=== PATIENT | female | born 1980 | race African-American/Black ===

== ENCOUNTER 2016-06-06 12:44 | Emergency (ER) | payer MEDICAID ==
--- NOTE | 2016-06-06 12:58 | ER Document Report ---
ED Medical Screen (RME) - General Stated Complaint: LEG PAIN Mode of Arrival: Wheelchair Information source: Patient Notes: pt c/o left hip for 5 days, started with her menses. No trauma, denies f/v/d. Reports hip pain radiates down her leg. Denies pmh. took otc med without relief of pain. declines motrin here. I have greeted and performed a rapid initial assessment of this patient. A comprehensive ED assessment and evaluation of the patient, analysis of test results and completion of the medical decision making process will be conducted by additional ED providers. TRAVEL OUTSIDE OF THE [place] IN LAST 30 DAYS: No - Related Data Allergies/Adverse Reactions: No Known Allergies Allergy (Verified 06/06/16 12:57) Past Medical History - Past Medical History Cardiac Medical History: Reports: Hx Hypertension Past Surgical History: Reports: Hx Tubal Ligation - Immunizations Hx Diphtheria, Pertussis, Tetanus Vaccination: Yes
[2016-06-06] MEDS ORDERED: DEXAMETHASONE SOD PHOS INJ 10 MG/1 ML VIAL IV ONE (15:15)
[2016-06-06] MEDS ORDERED: HYDROMORPHONE HCL INJ/PF 2 MG/ML AMPULE IV ONE ×2 (15:15→18:18)
--- NOTE | 2016-06-06 15:22 | ER Document Report ---
ED General - General Chief Complaint: Hip Pain Stated Complaint: LEG PAIN Time seen by provider: 15:17 Mode of Arrival: Wheelchair Information source: Patient Notes: This is a pleasant 35-year-old female with a history of high blood pressure morbid obesity who presents to the emergency room with left posterior pelvis pain for the past one day. Patient denies any fever, chills, nausea vomiting. Patient denies any abdominal pain. Patient has pain with range of motion TRAVEL OUTSIDE OF THE [place] IN LAST 30 DAYS: No - HPI Onset: Yesterday Onset/Duration: Gradual Quality of pain: Dull Severity: Moderate Pain Level: 4 Associated symptoms: denies: Chest pain, Shortness of breath Exacerbated by: Movement Relieved by: Remaining still Similar symptoms previously: No Recently seen / treated by doctor: No - Related Data Allergies/Adverse Reactions: No Known Allergies Allergy (Verified 06/06/16 12:57) Past Medical History - General Information source: Patient - Social History Smoking Status: Never Smoker Cigarette use (# per day): No Chew tobacco use (# tins/day): No Frequency of alcohol use: None Drug Abuse: None Lives with: Family Family History: Reviewed & Not Pertinent Patient has suicidal ideation: No Patient has homicidal ideation: No - Past Medical History Cardiac Medical History: Reports: Hx Hypertension Pulmonary Medical History: Reports: None EENT Medical History: Reports: None Neurological Medical History: Reports: None Endocrine Medical History: Reports: None Renal/ Medical History: Reports: None. Denies: Hx Peritoneal Dialysis Malignancy Medical History: Reports: None GI Medical History: Reports: None Musculoskeltal Medical History: Reports None Skin Medical History: Reports None Psychiatric Medical History: Reports: None Traumatic Medical History: Reports: None Infectious Medical History: Reports: None Past Surgical History: Reports: Hx Tubal Ligation - Immunizations Hx Diphtheria, Pertussis, Tetanus Vaccination: Yes Review of Systems - Review of Systems Constitutional: denies: Chills, Fever EENT: No symptoms reported Cardiovascular: No symptoms reported. denies: Chest pain, Palpitations, Heart racing, Syncope, Edema Respiratory: No symptoms reported. denies: Cough, Hemoptysis, Short of breath Gastrointestinal: No symptoms reported. denies: Abdominal pain, Nausea, Vomiting Genitourinary: No symptoms reported Female Genitourinary: No symptoms reported Musculoskeletal: See HPI Skin: No symptoms reported Hematologic/Lymphatic: No symptoms reported Neurological/Psychological: No symptoms reported Physical Exam - Vital signs Vitals: Temp Pulse Resp BP Pulse Ox 97.9 F 73 20 167/102 H 99 06/06/16 12:57 06/06/16 12:57 06/06/16 12:57 06/06/16 12:57 06/06/16 12:57 Notes: Physical exam: GENERAL: This is a 35-year-old female who is alert and oriented 3. She is lying on her right side to avoid movement of the left hip. HEAD: Atraumatic, normocephalic. EYES: Pupils equal round and reactive to light, extraocular movements intact, sclera anicteric, conjunctiva are normal. ENT: TMs normal, nares patent, oropharynx clear without exudates. Moist mucous membranes. NECK: Normal range of motion, supple without lymphadenopathy or JVD. LUNGS: Breath sounds clear to auscultation bilaterally and equal. No wheezes rales or rhonchi. HEART: Regular rate and rhythm without murmurs, rubs or gallops. ABDOMEN: Soft, normoactive bowel sounds. No tenderness to palpation. No guarding, no rebound. No masses appreciated. Back: Her thoracic spine is nontender. Her lumbar spine is nontender. Pelvis: She appears to have tenderness to palpation over the left iliac wing. There is no erythema or skin changes above that area. EXTREMITIES: She has limited range of motion of the right hip due to pain. NEUROLOGICAL: Cranial nerves II through XII grossly intact. Normal speech, normal gait. PSYCH: Normal mood, normal affect. SKIN: Warm, Dry, normal turgor, no rashes or lesions noted. Course - Vital Signs Vital signs: Temp Pulse Resp BP Pulse Ox 98.0 F 84 20 158/98 H 100 06/06/16 18:30 06/06/16 18:30 06/06/16 12:57 06/06/16 18:30 06/06/16 18:30 - Laboratory Result Diagrams: 06/06/16 15:35 06/06/16 15:35 Laboratory results interpreted by me: 06/06/16 15:35 Hgb 11.4 L Hct 33.9 L RDW 16.0 H - Diagnostic Test Radiology reviewed: Image reviewed, Reports reviewed - CT of the pelvis shows no acute or occult fractures. There is an SI arthropathy which if inflamed could be causing the patient's symptoms. Discharge - Discharge Clinical Impression: Arthropathy of left sacroiliac joint Clinical Impression: (Ruled Out): Lumbar back pain with radiculopathy affecting left lower extremity Condition: Stable Disposition: HOME, SELF-CARE Instructions: Oral Narcotic Medication ([facility]), Steroid Medication Additional Instructions: Recommendations: Take the Medrol Dosepak as prescribed: Start tomorrow morning (you were given today's steroids in the ER). Take the Percocet as needed: This is a narcotic, see the narcotic instruction sheet. Follow-up with your primary care doctor this week: Call the clinic on Wednesday. Bring a copy of today's CT report as well as lab reports with you when you go for evaluation. Return to the emergency room for worsening pain, fever (temperature greater than 100.4 or any concerns he getting worse. The pain medicine you're taking prescribed as a narcotic. There are several important things you should know about this medicine: 1. This medicine contains Tylenol: It is important that you do not take Tylenol (or acetaminophen) while on this medicine. Tylenol is metabolized by the liver and taking too much Tylenol (acetaminophen) can lay to liver damage and even liver failure. 2. Taking narcotics for too long can lead to physical and mental dependence. Take this medicine only if really needed and in the lowest quantity to achieve pain relief. 3. Do not drink alcohol while on this medicine. Alcohol interacts with narcotics and the combination can be dangerous. 4. Do not drive or operate machinery while on this medicine. 5. Narcotics do cause constipation, so drink plenty of fluids and daily stool softeners. Prescriptions: Methylprednisolone [Medrol 4 mg Dosepack 21 Tab/Pack] 4 mg PO ASDIR PRN #21 tab.ds.pk PRN Reason: Oxycodone HCl/Acetaminophen [Percocet 5-325 mg Tablet] 1 - 2 tab PO ASDIR PRN # 25 tablet PRN Reason: Referrals: RENEA CHRISTIANSON MD [Primary Care Provider] - Follow up as needed
[2016-06-06 16:18] LABS: ABSOLUTE EOSINOPHILS # (AUTO) 0.1 10^3/uL (0.0-0.6); ABSOLUTE LYMPHOCYTES (AUTO) 2.9 10^3/uL (0.5-4.7); ABSOLUTE MONOCYTES (AUTO) 0.4 10^3/uL (0.1-1.4); ABSOLUTE NEUT (AUTO) 5.3 10^3/uL (1.7-8.2); BASOPHILS % (AUTO) 0.5 % (0-2); EOSINOPHILS % (AUTO) 1.5 % (0-6); HEMATOCRIT 33.9 % (36.0-47.0); HEMOGLOBIN 11.4 g/dL (12.0-15.5); HGB HCT DIFFERENCE 0.3; MEAN CORPUSCULAR HEMOGLOBIN 28.6 pg (27.0-33.4); MEAN CORPUSCULAR HGB CONC 33.6 g/dL (32.0-36.0); MEAN CORPUSCULAR VOLUME 85 fl (80-97); MONOCYTES % (AUTO) 4.9 % (3-13); RED BLOOD COUNT 3.97 10^6/uL (3.72-5.28); SEGMENTED NEUTROPHILS % (AUTO) 60.1 % (42-78); WHITE BLOOD COUNT 8.8 10^3/uL (4.0-10.5)
[2016-06-06 16:38] LABS: ANION GAP 9 (5-19); BLOOD UREA NITROGEN 9 mg/dL (7-20); CALCIUM 9.7 mg/dL (8.4-10.2); CARBON DIOXIDE 29 mmol/L (22-30); CHLORIDE 103 mmol/L (98-107); CREATININE RESULT 0.92 mg/dL (0.52-1.25); GLUCOSE 86 mg/dL (75-110); POTASSIUM 3.8 mmol/L (3.6-5.0); SODIUM 141.4 mmol/L (137-145)
[2016-06-06 18:33] VITALS: BP 158/98
== END 2016-06-06 18:33 | disposition home or self-care (01) ==
LOC: ER 12:44
DX: M46.98 Unspecified inflammatory spondylopathy, sacral and sacrococcygeal region (principal); M25.559 Pain in unspecified hip; I10 Essential (primary) hypertension; E66.01 Morbid (severe) obesity due to excess calories
CPT/HCPCS: 96376; 99284; 96374; 96375; 36415; 85025; 80048; 73502; 72192; J1170; J1100

== ENCOUNTER 2017-07-21 17:17 | Emergency (ER) | payer MEDICAID ==
[2017-07-21 17:26] VITALS: BP 174/100
--- NOTE | 2017-07-21 18:31 | ER Document Report ---
HPI - HPI Patient complains to provider of: Possible STD exposure Pain Level: Denies Context: Patient is a 36-year-old female with history of hypertension presenting to the emergency department for a possible STD exposure. Her boyfriend has a penile discharge and was unfaithful to the relationship. She denies any symptoms presently but wants to be tested. She denies any vaginal discharge, odor, pain. Denies abdominal pain, flank pain, urinary symptoms, or fever. Associated Symptoms: None Exacerbated by: Denies Relieved by: Denies - ROS Systems Reviewed and Negative: Yes All other systems reviewed and negative - REPRODUCTIVE Reproductive: DENIES: : Past Medical History - General Information source: Patient - Social History Smoking Status: Never Smoker Chew tobacco use (# tins/day): No Frequency of alcohol use: None Drug Abuse: None Lives with: Family Family History: Reviewed & Not Pertinent Patient has suicidal ideation: No Patient has homicidal ideation: No - Past Medical History Cardiac Medical History: Reports: Hx Hypertension Renal/ Medical History: Denies: Hx Peritoneal Dialysis Past Surgical History: Reports: Hx Tubal Ligation - Immunizations Hx Diphtheria, Pertussis, Tetanus Vaccination: Yes Vertical Provider Document - CONSTITUTIONAL Agree With Documented VS: Yes Exam Limitations: No Limitations - INFECTION CONTROL TRAVEL OUTSIDE OF THE [place] IN LAST 30 DAYS: No - NECK Neck: Supple - RESPIRATORY Respiratory: Breath Sounds Normal, No Respiratory Distress - CARDIOVASCULAR Cardiovascular: Regular Rate, Regular Rhythm - GI/ABDOMEN Gastrointestinal: Abdomen Soft, Abdomen Non-Tender - NEURO Level of Consciousness: Awake, Alert, Appropriate - DERM Integumentary: Warm, Dry Course - Re-evaluation Re-evalutation: 07/21/17 18:28 Blood pressure is noted to be elevated today. Patient is known to have a history of hypertension but is not on medications presently due to a change in her Medicaid and primary care provider. Patient is asymptomatic with her elevated blood pressure. Patient encouraged to keep a blood pressure diary, limit sodium, follow-up with her primary care for further treatment of her hypertension. I am treating for gonorrhea and chlamydia based on her sexual exposure. Gonorrhea and Chlamydia results are pending. - Vital Signs Vital signs: Temp Pulse Resp BP Pulse Ox 98.5 F 76 17 174/100 H 100 07/21/17 17:22 07/21/17 17:22 07/21/17 17:22 07/21/17 17:22 07/21/17 17:22 Discharge - Discharge Clinical Impression: STD exposure Condition: Stable Disposition: HOME, SELF-CARE Instructions: Gonorrhea ([facility]), Chlamydia ([facility]), Antibiotic Therapy ([facility]), Antibiotic Shot ([facility]) Additional Instructions: You are being treated for a gonorrhea and chlamydia infection Gonorrhea and Chlamydia test results are pending. I will call you with those results Recommend no unprotected sex 1 week
[2017-07-21] MEDS ORDERED: CEFTRIAXONE INJ 250 MG VIAL IM ONE (18:37)
[2017-07-21] MEDS ORDERED: LIDOCAINE 1% INJ-PF (10 MG/ML) 30 ML SDV INJ ONE (18:37)
[2017-07-21 20:10] LABS: CHLAM PCR NOT DETECTED (NOT DETECT); GON PCR NOT DETECTED (NOT DETECT)
== END 2017-07-21 19:15 | disposition home or self-care (01) ==
LOC: ER 17:17
DX: Z20.2 Contact with and (suspected) exposure to infections with a predominantly sexual mode of transmission (principal); I10 Essential (primary) hypertension
CPT/HCPCS: 99283; 96372; 87491; 87591; J3490; J0696

== ENCOUNTER 2017-11-17 15:24 | Emergency (ER) | payer MEDICAID ==
--- NOTE | 2017-11-17 15:38 | ER Document Report ---
ED General - General Chief Complaint: Breathing Difficulty Stated Complaint: DIFFICULTY BREATHING Time Seen by Provider: 11/17/17 15:32 TRAVEL OUTSIDE OF THE [place] IN LAST 30 DAYS: No - HPI Notes: Patient is a 36-year-old female who presents to the ED complaining of nasal congestion/discharge, dry semi-productive cough, wheezing, fever/chills, body ache 3 days. Patient states that she is still eating and drinking without difficulties, but does have a decreased p.o. intake. She is still urinating normally having normal bowel movements. Patient has been using some over-the- counter meds for symptoms. She denies any significant past medical history including cardiopulmonary history and immunocompromised conditions. Patient denies any smoking or IV drug use. Denies any current headache, neck pain, sore throat, chest pain, palpitations, syncope, shortness of breath, wheeze, dyspnea, abdominal pain, nausea/vomiting/diarrhea, urinary retention, dysuria, hematuria, or rash. - Related Data Allergies/Adverse Reactions: No Known Allergies Allergy (Verified 11/17/17 15:32) Past Medical History - Social History Smoking Status: Never Smoker Frequency of alcohol use: None Drug Abuse: None Family History: Reviewed & Not Pertinent Patient has suicidal ideation: No Patient has homicidal ideation: No - Past Medical History Cardiac Medical History: Reports: Hx Hypertension Renal/ Medical History: Denies: Hx Peritoneal Dialysis Past Surgical History: Reports: Hx Tubal Ligation - Immunizations Hx Diphtheria, Pertussis, Tetanus Vaccination: Yes Review of Systems - Review of Systems -: Yes All other systems reviewed and negative Physical Exam - Vital signs Vitals: Pulse Ox 98 11/17/17 15:25 - Notes Notes: PHYSICAL EXAMINATION: GENERAL: Well-appearing, well-nourished and in no acute distress. A&Ox4. Answers questions appropriately. Moves comfortably w/o notable distress HEAD: Atraumatic, normocephalic. EYES: Pupils equal round and reactive to light, extraocular movements intact, sclera anicteric, conjunctiva are normal. ENT: Nares patent and with clear discharge. oropharynx no erythema without exudates. No tonsilar hypertrophy without erythema or exudate. No palatine shift. Uvula midline. No tongue protrusion. No drooling, hoarseness, or airway compromise. Moist mucous membranes. No sinus tenderness. NECK: Normal range of motion, supple without lymphadenopathy. No rigidity/ meningismus. LUNGS: + wheezing b/l base, crackles rt lung near base. No retractions HEART: Regular rate and rhythm without murmurs, rubs, gallops. ABDOMEN: Soft, nontender, nondistended abdomen. No guarding, no rebound. No masses appreciated. Normal bowel sounds present. No CVA tenderness bilaterally. No hepatosplenomegaly. NEUROLOGICAL: Normal speech, normal gait. Normal sensory, motor exams PSYCH: Normal mood, normal affect. SKIN: Warm, Dry, normal turgor, no rashes or lesions noted. Course - Re-evaluation Re-evalutation: 11/17/17 17:15 Patient is an afebrile, well-hydrated, 36-year-old female who presents to the ED with a right middle/lower lobe pneumonia. Vitals are acceptable without any significant tachycardia, tachypnea, or hypoxia. PE is otherwise unremarkable. Patient was given Solu-Medrol and breathing treatments by EMS. CBC showed a mildly elevated white count. EKG was unremarkable. CMP was also unremarkable for acute pathology aside from mild hypokalemia which was replaced with 40meq KCl-. Rapid influenza tests were negative. See chest x-ray result. No other labs or imaging warranted at this time based on H&P. Pt given levaquin and tylenol. Low suspicion for any ACS, PE, pneumothorax, pericarditis, dissection , respiratory compromise, severe dehydration, sepsis, meningitis, or other systemic emergent condition at this time. Patient is aware that her condition can change from initial presentation and she needs to monitor symptoms closely and seek medical attention for any acute changes. Rx for levaquin. Recommend conservative measures for symptoms. Recheck with your PCM in 2-3 days. Return to the ED with any worsening/concerning symptoms otherwise as reviewed in discharge. Patient is in agreement. - Vital Signs Vital signs: Temp Pulse Resp BP Pulse Ox 100.5 F H 27 H 161/89 H 96 11/17/17 15:32 11/17/17 16:06 11/17/17 15:33 11/17/17 16:06 - Laboratory Result Diagrams: 11/17/17 15:08 11/17/17 16:30 Laboratory results interpreted by me: 11/17/17 11/17/17 15:08 16:30 WBC 15.2 H Hgb 11.6 L Hct 34.5 L RDW 15.1 H Seg Neutrophils % 81.0 H Absolute Neutrophils 12.3 H Potassium 3.2 L BUN 5 L Glucose 112 H Discharge - Discharge Clinical Impression: Pneumonia involving right lung Qualifiers: Pneumonia type: due to unspecified organism Lung location: lower lobe of lung Qualified Code(s): J18.1 - Lobar pneumonia, unspecified organism Condition: Stable Disposition: HOME, SELF-CARE Instructions: Levofloxacin, Pneumonia ([facility]) Additional Instructions: Maintain adequate fluid intake Take meds as directed tylenol/ibuprofen as needed over the counter cold medication as needed for symptoms Humidified air may help Wash your hands regularly Wear a mask when coughing F/u: with your PCM in 2-3 days for a recheck Return to the ED with any fever, worsening pain, chest pain, palpitations, syncope, worsening PINEDA, neck pain/stiffness, shortness of breath, wheezing, drooling, trouble swallowing/breathing, abdominal pain, n/v/d, rash, or worsening/concerning symptoms otherwise. Prescriptions: Albuterol Sulfate [Proair HFA Inhalation Aerosol 8.5 gm MDI] 2 puff IH Q4H PRN # 1 mdi PRN Reason: Levofloxacin [Levaquin 750 mg Tablet] 750 mg PO DAILY #4 tablet Forms: Elevated Blood Pressure Referrals: [facility] [Provider Group] - Follow up as needed [facility] [Provider Group] - Follow up as needed
[2017-11-17 15:41] LABS: ABSOLUTE MONOCYTES (AUTO) 0.8 10^3/uL (0.1-1.4); ABSOLUTE NEUT (AUTO) 12.3 10^3/uL (1.7-8.2); BASOPHILS % (AUTO) 0.3 % (0-2); EOSINOPHILS % (AUTO) 0.2 % (0-6); HEMATOCRIT 34.5 % (36.0-47.0); HEMOGLOBIN 11.6 g/dL (12.0-15.5); LYMPHOCYTES % (AUTO) 13.3 % (13-45); MEAN CORPUSCULAR HEMOGLOBIN 28.9 pg (27.0-33.4); MEAN CORPUSCULAR HGB CONC 33.6 g/dL (32.0-36.0); MEAN CORPUSCULAR VOLUME 86 fl (80-97); MONOCYTES % (AUTO) 5.2 % (3-13); PLATELET COUNT 359 10^3/uL (150-450); RED BLOOD COUNT 4.01 10^6/uL (3.72-5.28); RED CELL DISTRIBUTION WIDTH 15.1 % (11.5-14.0); TOTAL CELLS COUNTED % (AUTO) 100 %; WHITE BLOOD COUNT 15.2 10^3/uL (4.0-10.5)
[2017-11-17] MEDS ORDERED: ACETAMINOPHEN 325 MG TABLET PO ONE (15:43)
--- NOTE | 2017-11-17 16:17 | RADIOLOGY REPORT (SQ) ---
EXAM DESCRIPTION: CHEST 2 VIEWS COMPLETED DATE/TIME: 11/17/2017 4:05 pm REASON FOR STUDY: wheezing COMPARISON: 11/11/2010 EXAM PARAMETERS: NUMBER OF VIEWS: two views TECHNIQUE: Digital Frontal and Lateral radiographic views of the chest acquired. RADIATION DOSE: NA LIMITATIONS: none FINDINGS: LUNGS AND PLEURA: There is hazy opacification in the right base. MEDIASTINUM AND HILAR STRUCTURES: No masses or contour abnormalities. HEART AND VASCULAR STRUCTURES: Heart normal size. No evidence for failure. BONES: No acute findings. HARDWARE: None in the chest. OTHER: No other significant finding. IMPRESSION: Possible limited right lower lobe or middle lobe pneumonia. TECHNICAL DOCUMENTATION: JOB ID: [id number] [employer]- All Rights Reserved Reading location - IP/workstation name: [email or web address]
[2017-11-17 16:24] LABS: A TYPE INFLUENZA AG NEGATIVE (NEGATIVE); B INFLUENZA AG NEGATIVE (NEGATIVE)
[2017-11-17] MEDS ORDERED: LEVOFLOXACIN 750 MG TABLET PO ONE (16:35)
[2017-11-17 16:51] LABS: ALANINE AMINOTRANSFERASE 17 U/L (9-52); ALBUMIN 3.7 g/dL (3.5-5.0); ALKALINE PHOSPHATASE 49 U/L (38-126); ANION GAP 14 (5-19); ASPARTATE AMINO TRANSFERASE 16 U/L (14-36); BILIRUBIN,DIRECT 0.4 mg/dL (0.0-0.4); BILIRUBIN,TOTAL 0.8 mg/dL (0.2-1.3); BLOOD UREA NITROGEN 5 mg/dL (7-20); CALCIUM 8.6 mg/dL (8.4-10.2); CARBON DIOXIDE 24 mmol/L (22-30); CHLORIDE 101 mmol/L (98-107); GLUCOSE 112 mg/dL (75-110); POTASSIUM 3.2 mmol/L (3.6-5.0); SODIUM 138.6 mmol/L (137-145); TOTAL PROTEIN 7.5 g/dL (6.3-8.2)
[2017-11-17] MEDS ORDERED: POTASSIUM CHLORIDE 10 MEQ CAPSULE.ER PO ONE (17:17)
[2017-11-17] MEDS ORDERED: IPRATROPIUM/ALBUTEROL 0.5-2.5 MG/3 ML AMPUL NEB ONE (17:19)
[2017-11-17] MEDS ORDERED: DEXAMETHASONE SOD PHOS INJ 10 MG/1 ML VIAL IM ONE (17:20)
[2017-11-17] MEDS ORDERED: DEXAMETHASONE SOD PHOS INJ 10 MG/1 ML VIAL IV ONE (17:23)
[2017-11-17 18:07] VITALS: BP 161/94
--- NOTE | 2017-11-17 22:13 | EKG REPORT ---
SEVERITY:- NORMAL ECG - SINUS RHYTHM NONSPECIFIC ST-T CHANGES LVH VS ISCHEMIA : Confirmed by: Won Mercer 17-Nov-2017 22:12:52
== END 2017-11-17 18:08 | disposition home or self-care (01) ==
LOC: ER 15:24
DX: J18.1 Lobar pneumonia, unspecified organism (principal); R06.00 Dyspnea, unspecified; R09.81 Nasal congestion; I10 Essential (primary) hypertension; Z98.51 Tubal ligation status
CPT/HCPCS: 93005; 99285; 96374; 36415; 85025; 80053; 87804; 71046; 93010; J3490 ×2; J1100

== ENCOUNTER 2018-12-05 10:35 | Emergency (ER) | payer MEDICAID ==
[2018-12-05 11:02] VITALS: BP 162/104
== END 2018-12-05 13:38 | disposition left against medical advice (07) ==
LOC: ER 10:35
DX: Z53.21 Procedure and treatment not carried out due to patient leaving prior to being seen by health care provider (principal)

== ENCOUNTER 2019-06-01 06:31 | Emergency (ER) | payer MEDICAID ==
[2019-06-01] MEDS ORDERED: DICYCLOMINE HCL 20 MG TABLET PO ONE (07:20)
[2019-06-01] MEDS ORDERED: ONDANSETRON HCL INJ/PF 4 MG/2 ML SDV IV ONE (07:20)
[2019-06-01] MEDS ORDERED: PANTOPRAZOLE SODIUM 40 MG VIAL IV ONE (07:20)
[2019-06-01 07:29] LABS: ABSOLUTE EOSINOPHILS # (AUTO) 0.1 10^3/uL (0.0-0.6); ABSOLUTE LYMPHOCYTES (AUTO) 1.9 10^3/uL (0.5-4.7); ABSOLUTE MONOCYTES (AUTO) 0.3 10^3/uL (0.1-1.4); ABSOLUTE NEUT (AUTO) 5.3 10^3/uL (1.7-8.2); BASOPHILS % (AUTO) 0.6 % (0-2); EOSINOPHILS % (AUTO) 1.8 % (0-6); HEMATOCRIT 37.4 % (36.0-47.0); HEMOGLOBIN 12.5 g/dL (12.0-15.5); LYMPHOCYTES % (AUTO) 24.3 % (13-45); MEAN CORPUSCULAR HEMOGLOBIN 29.4 pg (27.0-33.4); MEAN CORPUSCULAR HGB CONC 33.4 g/dL (32.0-36.0); MEAN CORPUSCULAR VOLUME 88 fl (80-97); MONOCYTES % (AUTO) 4.3 % (3-13); PLATELET COUNT 380 10^3/uL (150-450); RED BLOOD COUNT 4.25 10^6/uL (3.72-5.28); RED CELL DISTRIBUTION WIDTH 15.8 % (11.5-14.0); TOTAL CELLS COUNTED % (AUTO) 100 %; WHITE BLOOD COUNT 7.7 10^3/uL (4.0-10.5)
[2019-06-01 07:46] LABS: ALBUMIN 3.8 g/dL (3.5-5.0); ALKALINE PHOSPHATASE 43 U/L (38-126); ANION GAP 6 (5-19); ASPARTATE AMINO TRANSFERASE 18 U/L (14-36); BILIRUBIN,TOTAL 0.3 mg/dL (0.2-1.3); BLOOD UREA NITROGEN 9 mg/dL (7-20); CALCIUM 8.8 mg/dL (8.4-10.2); CARBON DIOXIDE 27 mmol/L (22-30); CHLORIDE 106 mmol/L (98-107); GLUCOSE 115 mg/dL (75-110); POTASSIUM 3.9 mmol/L (3.6-5.0); TOTAL PROTEIN 6.9 g/dL (6.3-8.2)
[2019-06-01 08:05] LABS: APPEARANCE,URINE SLIGHTLY-CLOUDY; BILIRUBIN,URINE NEGATIVE (NEGATIVE); COLOR,URINE STRAW; GLUCOSE, URINE NEGATIVE (NEGATIVE); KETONES,URINE NEGATIVE (NEGATIVE); LEUKOCYTE ESTERASE,URINE NEGATIVE (NEGATIVE); NITRITE,URINE NEGATIVE (NEGATIVE); PROTEIN,URINE NEGATIVE (NEGATIVE); URINE SPECIFIC GRAVITY 1.012; UROBILINOGEN,URINE NEGATIVE mg/dL (<2.0)
[2019-06-01 10:13] VITALS: BP 159/96
--- NOTE | 2019-06-01 18:24 | ER Document Report ---
Entered by MARYANNE LIMA SCRIBE 06/01/19 0750 Acting as scribe for:HARPER TORRES DO ED GI/ - General Chief Complaint: Abdominal Pain Stated Complaint: ABDOMINAL PAIN/NAUSEA Time Seen by Provider: 06/01/19 07:03 Primary Care Provider: CAREY GARVEY DO [Primary Care Provider] - Follow up in 3-5 days Information source: Patient Notes: This 38-year-old female patient presents to the emergency department today with complaints of abdominal pain with associated nausea and vomiting. Patient indicates that her pain is mostly in the right upper quadrant. Patient describes her vomit as "chunky and brown". Patient denies chest pain, shortness of breath, or diarrhea. Pertinent PMHx/PSHx: Unmedicated hypertension - additional PMHx/PSHx not pertinent to this visit as recorded. PCP: Doctor Gaby TRAVEL OUTSIDE OF THE [place] IN LAST 30 DAYS: No - Related Data Allergies/Adverse Reactions: codeine Allergy (Verified 06/01/19 06:48) Past Medical History - General Information source: Patient - Social History Smoking Status: Current Every Day Smoker Cigarette use (# per day): Yes Frequency of alcohol use: None Drug Abuse: None Lives with: Family Family History: Reviewed & Not Pertinent Patient has suicidal ideation: No Patient has homicidal ideation: No - Past Medical History Cardiac Medical History: Reports: Hx Hypertension - unmedicated GI Medical History: Infectious Medical History: Past Surgical History: Reports: Hx Tubal Ligation - Immunizations Hx Diphtheria, Pertussis, Tetanus Vaccination: Yes Review of Systems - Review of Systems Constitutional: No symptoms reported EENT: No symptoms reported Cardiovascular: denies: Chest pain Respiratory: denies: Short of breath Gastrointestinal: See HPI, Abdominal pain, Nausea, Vomiting. denies: Diarrhea Genitourinary: No symptoms reported Female Genitourinary: No symptoms reported Musculoskeletal: No symptoms reported Skin: No symptoms reported Hematologic/Lymphatic: No symptoms reported Neurological/Psychological: No symptoms reported -: Yes All other systems reviewed and negative Physical Exam - Vital signs Vitals: Temp Pulse Resp BP Pulse Ox 98.1 F 61 16 219/113 H 98 06/01/19 06:38 06/01/19 06:38 06/01/19 06:38 06/01/19 06:38 06/01/19 06:38 - Notes Notes: Physical Exam: General: Alert, appears well. HEENT: Normocephalic. Atraumatic. PERRL. Extraocular movements intact. Oropharynx clear. Dry mucous membranes. Neck: Supple. Non-tender. Respiratory: No respiratory distress. Clear and equal breath sounds bilaterally. Cardiovascular: Regular rate and rhythm. Abdominal: Mild epigastric tenderness with palpation. No distension. Normal Bowel Sounds. Back: No gross abnormalities. Extremities: Moves all four extremities. Upper extremities: Normal inspection. Normal ROM. Lower extremities: Normal inspection. No edema. Normal ROM. Neurological: Normal cognition. AAOx4. Normal speech. Psychological: Normal affect. Normal Mood. Skin: Warm. Dry. Normal color. Course - Re-evaluation Re-evalutation: 06/01/19 Patient with no acute findings on blood work. Feels better after GI cocktail. Will be discharged home and is to follow-up with her doctor. Return if any further concerns or symptoms. Taking p.o. and would like to be discharged. Understands and agrees with plan. Stable for discharge. - Vital Signs Vital signs: Temp Pulse Resp BP Pulse Ox 98.4 F 61 18 159/96 H 100 06/01/19 10:31 06/01/19 06:38 06/01/19 10:01 06/01/19 10:01 06/01/19 10:01 - Laboratory Result Diagrams: 06/01/19 07:02 06/01/19 07:02 Laboratory results interpreted by me: 06/01/19 06/01/19 06/01/19 07:02 07:02 07:50 RDW 15.8 H Glucose 115 H Urine Blood MODERATE H Discharge - Discharge Clinical Impression: Epigastric pain Nausea & vomiting Qualifiers: Vomiting type: unspecified Vomiting Intractability: non-intractable Qualified Code(s): R11.2 - Nausea with vomiting, unspecified Condition: Stable Disposition: HOME, SELF-CARE Prescriptions: Ondansetron [Zofran Odt 4 mg Tablet] 4 mg PO Q4HP PRN #30 tab.rapdis PRN Reason: Dicyclomine HCl [Bentyl 20 mg Tablet] 20 mg PO TIDP PRN #30 tablet PRN Reason: Forms: Return to Work, Elevated Blood Pressure Referrals: CAREY GARVEY DO [Primary Care Provider] - Follow up in 3-5 days I personally performed the services described in the documentation, reviewed and edited the documentation which was dictated to the scribe in my presence, and it accurately records my words and actions.
== END 2019-06-01 10:31 | disposition home or self-care (01) ==
LOC: ER 06:31
DX: R10.13 Epigastric pain (principal); R10.11 Right upper quadrant pain; R10.816 Epigastric abdominal tenderness; R11.2 Nausea with vomiting, unspecified; I10 Essential (primary) hypertension; F17.210 Nicotine dependence, cigarettes, uncomplicated; Z98.51 Tubal ligation status; Z88.6 Allergy status to analgesic agent; Z88.5 Allergy status to narcotic agent
CPT/HCPCS: 99284; 96374; 96375; 36415; 83690; 85025; 81025; 80053; 81001; 84484; J3490; C9113; J2405